=== PATIENT | male | born 1945 | race Caucasian/White ===

== ENCOUNTER 2019-08-21 06:00 | Outpatient (RCR) | payer OTHER, SELFPAY | END 2019-09-20 00:01 | LOC: PULRHB 06:00 | PROVIDERS: Family Provider Family Medicine; Visit Provider Internal Medicine Pulmonary Disease | DX: J84.9 Interstitial pulmonary disease, unspecified (principal) | CPT/HCPCS: G0237 ×4; G0238 ×3; G0239; G0424 ==

== ENCOUNTER 2019-09-21 06:00 | Outpatient (RCR) | payer OTHER, SELFPAY | END 2019-10-21 23:59 | disposition home or self-care (01) | LOC: PULRHB 06:00 | PROVIDERS: Family Provider Family Medicine; PCP Family Medicine; Visit Provider Internal Medicine Pulmonary Disease | DX: J84.9 Interstitial pulmonary disease, unspecified (principal) | CPT/HCPCS: G0237; G0238; G0239 ==

== ENCOUNTER 2019-10-26 07:17 | Outpatient (RCR) | payer OTHER, SELFPAY | END 2019-11-19 23:59 | disposition home or self-care (01) | LOC: PULRHB 07:17 | PROVIDERS: Family Provider Family Medicine; PCP Family Medicine; Visit Provider Internal Medicine Pulmonary Disease | DX: J84.9 Interstitial pulmonary disease, unspecified (principal) | CPT/HCPCS: G0237; G0238; G0239; G0424 ==

== ENCOUNTER 2019-11-20 06:00 | Outpatient (RCR) | payer OTHER, SELFPAY | END 2019-12-20 23:59 | disposition home or self-care (01) | LOC: PULRHB 06:00 | PROVIDERS: Family Provider Family Medicine; PCP Family Medicine; Visit Provider Internal Medicine Pulmonary Disease | DX: J84.9 Interstitial pulmonary disease, unspecified (principal) | CPT/HCPCS: G0237; G0238; G0239 ==

== ENCOUNTER 2020-04-10 09:52 | Outpatient (CLI) | payer OTHER, SELFPAY ==
[2020-04-10 10:17] LABS: Add Urine Microscopic? NO
[2020-04-10 10:44] LABS: Bilirubin Urine Neg (NEGATIVE); Blood Urine Neg (Negative); Glucose Urine UA Trace (Normal); Ketones Urine Negative (Negative); Leukocyte Esterase Urine Negative (Negative); Nitrate Urine Negative (Negative); Protein Urine Neg (Negative); Urine Appearance Clear (CLEAR); Urine Color Yellow (Yellow); Urobilinogen Urine Norm (Negative); pH Urine 5 (5-7)
[2020-04-10 11:05] LABS: Alanine Aminotransferase 17 U/L (0-41); Albumin Level 3.7 g/dL (3.5-5.2); Alkaline Phosphatase 62 IU/L (40-130); Aspartate Amino Transferase 18 U/L (0-40); Blood Urea Nitrogen 31 mg/dL (8-23); Calcium 8.9 mg/dL (8.5-10.5); Carbon Dioxide 29 mmol/L (22-29); Chloride 97 mmol/L (98-107); Globulin 2.7 g/dL (1.3-4.6); Glucose 233 mg/dL (65-115); Osmolality Calculated 291 mOsm/kg (285-295); Sodium 138 mmol/L (136-145); Total Bilirubin 0.3 mg/dL (0.15-1.2); Total Protein 6.4 g/dL (6.6-8.7)
== END 2020-04-10 09:53 | disposition home or self-care (01) ==
LOC: LAB 09:56
PROVIDERS: PCP Family Medicine; Visit Provider Orthopaedic Surgery
DX: E11.9 Type 2 diabetes mellitus without complications (principal)
CPT/HCPCS: 36415; 80053; 81003